=== PATIENT | female | born 1935 | race Caucasian/White ===

== ENCOUNTER → 2021-08-10 | Outpatient (CLI) | payer MEDICARE ==
[~2021-08-10] MED LIST: BENICAR 20 MG T20 MG PO; BRIMONIDINE TAR15 M1 EYEBOTH; COSOPT OPTH SOL10 ML EYEBOTH; HYDROCHLOROTH12.5 M1 PO; LEVOFLOXACIN500 MG PO; LEVOTHYROXINE75 MC1 PO; LIPITOR TAB 1010 MG PO; LUMIGAN 0.01%2.5 ML EYEBOTH
== END ==
LOC: US 13:30
DX: M79.605 Pain in left leg (principal); M79.89 Other specified soft tissue disorders
CPT/HCPCS: 93971